=== PATIENT | female | born 1980 | race Caucasian/White ===

== ENCOUNTER 2021-01-02 05:49 | Emergency (ER) | payer OTHER ==
[~2021-01-02] VITALS: Ht 152.4 cm; Wt 117.9 kg
[2021-01-02 05:55] VITALS: BP_SYST 123
--- NOTE | 2021-01-02 05:55 | NUR ---
PT TO BED 5 FOR EVALUATION.
--- NOTE | 2021-01-02 06:08 | NUR ---
PARTH REESE at bedside examining patient.
--- NOTE | 2021-01-02 06:11 | NUR ---
PATIENT BIB BLS FROM [facility] C/O BURNING IN LOWER LEG SENSATION, DIZZINESS, WAKING UP FROM SLEEPING DUE TO A PANICK ATTACK, AND HAVING CLEAR URINE TO WHICH SHE "THOUGHT SOMETHING WAS HARD". PATIENT STATES SHE IS OUT OF HER PAIN MEDICATION. PATIENT DENIES NAUSEA, VOMITING, SHORTNESS OF BREATH, CHEST PAIN, FEVER, CHILLS. PATIENT RESTING COMFORTABLY IN GURNEY, BREATHING EVEN AND UNLABORED, NO SIGNS OF ACUTE DISTRESS. WILL CONTINUE TO MONITOR.
[2021-01-02] MEDS ORDERED: methocarbamoL 500 MG TABLET PO ONE (06:30)
[2021-01-02] MEDS ORDERED: LORazepam 1 MG TABLET PO ONE (06:30)
--- NOTE | 2021-01-02 06:37 | NUR ---
PATIENT MEDICATED PER MD ORDERS. PATIENT TOLERATED WELL.
[2021-01-02 06:53] LABS: BILIRUBIN,URINE NEGATIVE (NEGATIVE); CLARITY/URINE CLEAR (CLEAR); COLOR,URINE YELLOW (YELLOW); GLUCOSE,URINE NEGATIVE (NEGATIVE); KETONES,URINE NEGATIVE (NEGATIVE); LEUKOCYTE ESTERASE ,URINE NEGATIVE (NEGATIVE); NITRITE, URINE NEGATIVE (NEGATIVE); PH,URINE 5.5 (5.0-8.0); PROTEIN URINE NEGATIVE (NEGATIVE); UROBILINOGEN,URINE 0.2 (0.2-1.0)
[2021-01-02 06:55] LABS: BASOPHILS # (AUTO) 0.1 K/uL (0.0-0.2); BASOPHILS % (AUTO) 0.8 % (0.0-2.0); EOSINOPHILS % (AUTO) 0.5 % (0.0-4.0); HEMATOCRIT 36.2 % (36-48); HEMOGLOBIN 12.2 g/dL (12.0-16.0); LYMPHOCYTES # (AUTO) 2.2 K/uL (1.0-5.5); LYMPHOCYTES % (AUTO) 25.3 % (20.5-51.5); MEAN CORPUSCULAR HEMOGLOBIN 33 pg (27-31); MEAN CORPUSCULAR HGB CONC 34 % (32-36); MEAN CORPUSCULAR VOLUME 97 fL (79.0-98.0); MONOCYTES # (AUTO) 0.5 K/uL (0.0-1.0); MONOCYTES % (AUTO) 6.3 % (1.7-9.3); NEUTROPHILS # (AUTO) 5.8 K/uL (1.8-7.7); NEUTROPHILS % (AUTO) 67.1 % (40.0-70.0); PLATELET COUNT (AUTO) 300 K/uL (130-430); RED BLOOD CELL COUNT(AUTO) 3.74 MIL/uL (4.2-6.2); RED CELL DISTRIBUTION WIDTH 16.7 % (9.0-15.0); WHITE BLOOD COUNT (AUTO) 8.7 K/uL (4.8-10.8)
[2021-01-02 07:01] LABS: BLOOD, URINE TRACE (NEGATIVE)
[2021-01-02 07:06] LABS: BACTERIA,URINE RARE /HPF (None Seen); MUCUS,URINE 1+ /LPF (None Seen); RBC,URINE 0-3 /HPF (0-3); WBC,URINE 0-3 /HPF (0-3)
[2021-01-02 07:07] LABS: BARBITURATE, URINE NEGATIVE (NEG <=200); BENZODIAZEPINE, URINE NEGATIVE (NEG <=150); CANNABINOID, URINE POSITIVE (NEG <=50); COCAINE, URINE NEGATIVE (NEG <=150); METHAMPHETAMINES SCREEN,URINE NEGATIVE (NEG <=500); OPIATE, URINE NEGATIVE (NEG <=100); PHENCYCLIDINE SCREEN,URINE NEGATIVE (NEG <=25); UR TRICYCLIC ANTIDEPRESSANTS NEGATIVE (NEG <=300); URINE AMPHETAMINE NEGATIVE (NEG <=500); URINE METHADONE NEGATIVE (NEG <=200); URINE OXYCODONE SCREEN NEGATIVE (NEG <=100); URINE PROPOXYPHENE SCREEN NEGATIVE (NEG <=300)
[2021-01-02 07:17] LABS: ANION GAP 13 (5-15); CALCIUM 9.3 mg/dL (8.4-11.0); CHLORIDE 102 mmol/L (98-107); GLUCOSE 118 mg/dL (70-99); POTASSIUM 3.1 mmol/L (3.5-5.1); SODIUM SERUM 140 mmol/L (136-145); UREA NITROGEN, BLOOD 6 mg/dL (8-21)
[2021-01-02 07:21] LABS: GFR AFRICAN AMERICAN 89 mL/min (>90)
--- NOTE | 2021-01-02 07:24 | NUR ---
REPORT GIVEN TO DANDY BOWMAN FOR CONTINUATION OF CARE.
[2021-01-02] MEDS ORDERED: POTASSIUM CHLORIDE 20 MEQ TAB.PRT.SR PO ONE (07:30)
[2021-01-02 07:31] LABS: ALANINE AMINOTRANSFERASE 37 U/L (12-78); ALBUMIN 3.4 g/dL (3.4-4.8); ASPARTATE AMINOTRANSFERASE 25 U/L (10-37); TOTAL BILIRUBIN 0.5 mg/dL (0.0-1.0)
[2021-01-02 07:32] LABS: ACETAMINOPHEN < 1 ug/mL (1-30); ALCOHOL, BLOOD < 3 mg/dL (<10)
--- NOTE | 2021-01-02 08:07 | NUR ---
ASSUMED CARE PF PT FROM FLAKO DORMAN
--- NOTE | 2021-01-02 08:15 | NUR ---
Patient given written and verbal discharge instructions and verbalizes understanding. ER MD discussed with patient the results and treatment provided. Patient in stable condition. ID arm band removed. intact and dressing applied, no active bleeding.. Patient educated on pain management and to follow up with PMD. Pain Scale 0/10. Opportunity for questions provided and answered. Medication side effect fact sheet provided.
[2021-01-02 08:16] VITALS: BP_SYST 123
== END 2021-01-02 08:15 | disposition home or self-care (01) ==
LOC: SED 05:49
DX: E87.6 Hypokalemia (principal); F41.9 Anxiety disorder, unspecified; G89.29 Other chronic pain; M79.601 Pain in right arm; M79.602 Pain in left arm; M79.604 Pain in right leg; M79.605 Pain in left leg
CPT/HCPCS: 36415; 80053; 80307; 81000; 85025; 99284; G0480; G0481; G0482